=== PATIENT | male | born 1960 | race Caucasian/White ===

== ENCOUNTER 2020-08-16 15:40 | Outpatient (REF) | payer OTHER, SELFPAY ==
--- NOTE | 2020-08-16 15:39 | MR_ITS ---
EXAMINATION: MR BRAIN WITHOUT AND WITH CONTRAST CLINICAL INFORMATION: Headaches. Balance problems. History of lymphoma. COMPARISON: None available. TECHNIQUE: Multiplanar, multisequence imaging of the brain was performed before and after the intravenous administration of 9 mL of Gadavist. FINDINGS: There is no acute infarction, mass, hemorrhage, or extra-axial collection. No abnormal or unexpected intracranial enhancement is seen. The ventricles, sulci, and basilar cisterns are normal in size and configuration. A few minimal nonspecific foci of T2 hyperintensity are seen in the cerebral white matter. The cerebellopontine angle cisterns appear normal. No mastoid fluid is seen. The flow voids of the major intracranial arteries appear intact. There is mild paranasal sinus mucosal thickening without fluid levels. The orbital contents appear normal. There is elongated focus of polypoid thickening extending from the posterior aspect of the left nasal cavity to the right aspect of the nasopharynx best seen on series 8 image 01/29. MR/MR head/brain wo/w con IMPRESSION: No parenchymal lesion, infarction, or abnormal intracranial enhancement. Incidentally noted elongated polypoid lesion extending from the left aspect of the posterior nasal cavity to the right aspect of the nasopharynx for which direct visual inspection is recommended. A polyp is suspected.
--- NOTE | 2020-08-27 13:50 | MHC.HEMONCSW ---
RE[id number] DATE RANGE; 08/15/20 TO 02/11/21. FAXED MD/ORDERS TO [facility], THEY WILL CALL AND SCHEDULE PT.
--- NOTE | 2020-08-28 08:22 | MHC.HEMONCSW ---
PT TO HAVE PET SCAN AT [facility] 09/03/[address] ESPINO.
== END 2020-08-16 15:41 | disposition home or self-care (01) ==
LOC: HO.MRI 15:40
PROVIDERS: Visit Provider Internal Medicine
DX: C82.90 Follicular lymphoma, unspecified, unspecified site (principal); R51.9 Headache, unspecified; R26.9 Unspecified abnormalities of gait and mobility
CPT/HCPCS: 70553; A9585

== ENCOUNTER 2020-10-26 07:02 | Day surgery (SDC) | payer OTHER, SELFPAY ==
--- NOTE | 2020-10-26 | IR_ITS ---
PROCEDURE: IR INSERTION OF TUNNEL CATHETER IR US GUIDANCE VENOUS ACCESS CLINICAL INFORMATION: Lymphoma. Chemotherapy. COMPARISON: None TECHNIQUE: Procedure and risks and benefits including bleeding, infection and pneumothorax were discussed with the patient and informed consent was obtained. All elements of maximal sterile barrier technique followed including use of cap, mask, sterile gown, sterile gloves, a sterile full body drape and hand hygiene. Also followed skin preparation with 2% chlorhexidine for cutaneous antisepsis, and sterile ultrasound preparation with sterile gel and probe cover when applicable. The right neck was prepped and draped in the usual sterile fashion. The skin and soft tissues were anesthetized with 1% lidocaine plain. Using ultrasound guidance and a 5 Congolese micropuncture system, right internal jugular vein access was obtained. Over an 018 wire, a 5 Congolese dilator was positioned in the SVC. The skin and soft tissues of the right upper anterior chest were anesthetized with 1% lidocaine plain. A small incision was made. A subcutaneous pocket was created. Subcutaneous tunnel from the chest to the neck incision was anesthetized with 1% lidocaine plain. Using a tunneler, a 6 Congolese single-lumen catheter was tunneled from the chest to the neck incision. The catheter was attached to the port. The port was positioned in the subcutaneous pocket and secured using two 2-0 nonabsorbable sutures. An 035 guidewire was advanced through the 5 Congolese dilator into the IVC. 5 Congolese dilator was exchanged for a 7 Congolese peel-away sheath. Using bent wire technique, catheter length was estimated and the catheter was cut. Catheter length is 21.5 cm. Catheter was fed through the peel-away sheath. The neck incision was closed using a 4-0 absorbable subcuticular suture. The chest incision was closed using three 3-0 interrupted absorbable sutures followed by a running 4-0 absorbable subcuticular suture. The port was accessed. The port flushed easily, had good blood return and was instilled with heparin 5 mL of 500 unit per mL solution. The patient received Versed 2 mg and fentanyl 100 mcg intravenously during the procedure and Kefzol 2 g IV. Total sedation time was 36 minutes. Real-time ultrasound guidance was used to document vein patency and for needle entry. A formal ultrasound picture was recorded. Fluoroscopy Time: 0.3 minutes. DAP: 62 cGy-cm2 Total Sedation Time: 36 minutes. FINDINGS: There is a right internal jugular port with tip projecting over the cavoatrial junction. IR/IR cvc insert tunnel w prt/upholstery cleaner IMPRESSION: Right internal jugular 6.6 Congolese single-lumen dignity Port-A-Cath placement.
[2020-10-26 06:46] VITALS: BMI 29.7
[2020-10-26 07:15] LABS: Glucose, Whole Blood 94 mg/dL (60-115)
[2020-10-26] MEDS: ceFAZolin Sodium 1 GM VIAL 2 GM IV (07:34)
[2020-10-26 07:52] LABS: INTERNATIONAL NORM RATIO 1.1 (0.9-1.1)
[2020-10-26] MEDS: Lidocaine HCl 1%/Epi 1:100,000 20 ML VIAL INFILTRATI (09:47)
[2020-10-26] MEDS: Heparin Sodium,Porcine Flush 500 UNIT/5 ML SYRINGE IVFLUSH (09:48)
[2020-10-26 10:00] VITALS: BP 141/78; PULSE 68; RESP 16; TEMP 36.1; O2SAT 96
[2020-10-26 10:15] VITALS: BP 146/75; PULSE 70; RESP 16; O2SAT 97
--- NOTE | 2020-10-26 10:19 | HO.RADPN ---
RADIOLOGY Narrative Narrative: Right IJ 6.6 Fr single lumen Dignity portacath placed. Tip at cavoatrial junction.
[2020-10-26 10:30] VITALS: BP 130/74; PULSE 70; RESP 18; O2SAT 95
[2020-10-26 10:45] VITALS: BP 126/72; PULSE 72; RESP 18; O2SAT 95
[2020-10-26 11:00] VITALS: BP 131/80; PULSE 72; RESP 17; O2SAT 96
== END 2020-10-26 11:51 | disposition home or self-care (01) ==
PROVIDERS: Radiology Diagnostic Radiology; PCP Internal Medicine; Visit Provider Internal Medicine
DX: C82.90 Follicular lymphoma, unspecified, unspecified site (principal); Z87.891 Personal history of nicotine dependence
CPT/HCPCS: 36415; 36561; 76937; 82947; 85610; 85730; 99152; 99153; C1769; C1788; J0690; J1642; J2250; J3010

== ENCOUNTER 2021-01-17 12:52 | Outpatient (REF) | payer OTHER, SELFPAY ==
--- NOTE | ~2021-01-17 | CT_ITS ---
EXAMINATION: CT CHEST AND CT ABDOMEN PELVIS WITH CONTRAST CLINICAL INFORMATION: Lymphoma, chemotherapy. COMPARISON: None TECHNIQUE: 5 mm thin axial and reformatted 3 mm thin sagittal and coronal images of chest, abdomen and pelvis were obtained following 100 mL Omnipaque 350. DLP: 638 mGy-cm. FINDINGS: CHEST: The lungs are well-expanded and clear of acute pneumonic process. There are no pulmonary nodules, mass or consolidation. The thyroid lobes are symmetrical and normal. The heart size and the great vessels are normal caliber. There is a right central port with its tip in SVC. No pericardial effusion seen. There is no abnormal size mediastinal or hilar lymph nodes. There is no pleural effusion, thickening or calcification. The axilla and the chest wall appears unremarkable. ABDOMEN AND PELVIS: The liver is diffusely attenuated but normal size, shape and position. No focal lesion or intrahepatic ductal dilatation seen. The gallbladder is is contracted but no radiopaque calculi or wall thickening seen. The spleen is normal size. Bilateral adrenal glands are symmetrical and normal. The pancreas is homogeneous in density and normal size. Both kidneys are normal size, shape and position. No focal lesion or hydronephrosis seen. There is scattered stool and gas seen throughout the colon without any distention. Oral opacified small loops are normal caliber. The stomach is distended with recently ingested food. The appendix is normal caliber. No inflammatory process seen in the abdomen. There is no evidence of abdominal wall hernia. Imaging through the pelvis reveals mild prostate enlargement with central gland heterogeneity. There is some hypodensity in the dependent portion of the bladder or wall calcification on axial image 80/11. No abnormal lymph nodes seen. There is no free fluid. Bone windows reveal no gross bony abnormality seen. CT/CT abdomen pelvis w con IMPRESSION: Unremarkable CT chest. No pulmonary nodules, mass or consolidation. No abnormal mediastinal or hilar lymph nodes. Unremarkable CT abdomen and pelvis. Suspect mild hepatic steatosis but no focal lesion seen.
[2021-01-17] MEDS: iohexoL 350 MG/ML 100 ML INFUS..BTL IV (16:08)
[2021-01-17] MEDS: Barium Sulfate Oral (Mocha) 450 ML ORAL.SUSP 900 ML PO (16:08)
== END 2021-01-17 12:53 | disposition home or self-care (01) ==
LOC: HO.CT 12:52
PROVIDERS: PCP Internal Medicine; Visit Provider Internal Medicine
DX: C82.90 Follicular lymphoma, unspecified, unspecified site (principal)
CPT/HCPCS: 71260; 74177; Q9967

== ENCOUNTER 2021-02-22 09:01 | Day surgery (SDC) | payer OTHER, SELFPAY ==
--- NOTE | ~2021-02-22 | IR_ITS ---
EXAMINATION: IR PORT-A-CATH REMOVAL CLINICAL INFORMATION: Lymphoma. Port no longer needed. COMPARISON: None TECHNIQUE: Procedure, risks and benefits including bleeding and infection were discussed with the patient, and informed consent was obtained. All elements of maximal sterile barrier technique followed including use of cap, mask, sterile gown, sterile gloves, a sterile full body drape, and hand hygiene. Also followed skin preparation with 2% chlorhexidine for cutaneous antisepsis, and sterile ultrasound preparation with sterile gel and probe cover when applicable. The left anterior chest over the port was prepped and draped in the usual sterile fashion. The skin and soft tissues were anesthetized with 1% lidocaine with epinephrine. A small incision was made over the port. Using blunt dissection, the port and catheter were removed. The incision was closed using 3 3-0 interrupted absorbable sutures followed by a running 4-0 absorbable subcuticular suture. The patient received Versed 1 mg and fentanyl 50 mcg intravenously during the procedure. Total sedation time was 18 minutes. FINDINGS: No images were obtained. IR/IR cvc remov tunnel wo prt/bag worker IMPRESSION: Right internal jugular Port-A-Cath removal.
[2021-02-22 09:26] VITALS: BMI 30.7
[2021-02-22 10:00] LABS: INTERNATIONAL NORM RATIO 1.1 (0.9-1.1); Prothrombin Time 12.5 SEC (10.8-13.0)
[2021-02-22 10:03] LABS: Partial Thromboplastin Time 27.5 SEC (24.1-38.0)
[2021-02-22 11:30] VITALS: BP 137/74; PULSE 57; RESP 16; TEMP 36.7; O2SAT 96
[2021-02-22 12:00] VITALS: BP 130/76; PULSE 55; RESP 18; O2SAT 98
--- NOTE | 2021-02-22 12:19 | P.RADPN_ITS ---
RADIOLOGY Narrative Narrative: Right IJ port removed.
--- NOTE | 2021-02-22 12:19 | HO.RADPN ---
RADIOLOGY Narrative Narrative: Right IJ port removed.
[2021-02-22 12:30] VITALS: BP 131/75; PULSE 60; RESP 18; O2SAT 98
== END 2021-02-22 12:59 | disposition home or self-care (01) ==
LOC: HO.SSS 09:02
PROVIDERS: Radiology Diagnostic Radiology; PCP Internal Medicine; Visit Provider Radiology Diagnostic Radiology
PROC: (CPT 36590; principal; 2021-02-22 10:00)
DX: Z45.2 Encounter for adjustment and management of vascular access device (principal); C82.90 Follicular lymphoma, unspecified, unspecified site
CPT/HCPCS: 36415; 36589; 85610; 85730; 99152; J2250; J3010